=== PATIENT | male | born 1950 | race American Indian/Alaskan Native ===

== ENCOUNTER 2020-12-17 08:00 | Day surgery (SDC) | payer MEDICARE, OTHER ==
[2020-12-17 08:43] LABS: Basophils # (Auto) 0.1 K/mm3 (0.0-0.1); Basophils % (Auto) 1.2 % (0.0-1.8); Eosinophils # (Auto) 0.2 K/mm3 (0.0-0.4); Eosinophils % (Auto) 3.6 % (0.0-4.3); Hematocrit 42.3 % (35.5-45.6); Hemoglobin 13.8 gm/dl (11.8-15.2); Lymphocytes # (Auto) 1.9 K/mm3 (1.2-5.4); Lymphocytes % (Auto) 32.9 % (13.4-35.0); Mean Corpuscular HGB Conc 33 % (32-34); Mean Corpuscular Volume 77 fl (84-94); Monocytes # (Auto) 0.7 K/mm3 (0.0-0.8); Monocytes % (Auto) 12.4 % (0.0-7.3); Red Blood Count 5.53 M/mm3 (3.65-5.03); Red Cell Distribution Width 13.1 % (13.2-15.2)
[2020-12-17 08:54] LABS: INR 1.08 (0.87-1.13)
[2020-12-17 09:00] LABS: BUN/Creatinine Ratio 16; Blood Urea Nitrogen 16 mg/dL (9-20); Calcium 9.2 mg/dL (8.4-10.2); Hemolysis Index 12
[2020-12-17] MEDS ORDERED: SODIUM CHLORIDE 0.9% 500 ML 500 ML IV SCH (09:00)
[2020-12-17] MEDS ORDERED: ASPIRIN EC 325 MG TAB PO SCH (09:00)
[2020-12-17 09:07] LABS: Platelet Count 174 K/mm3 (140-440)
[2020-12-17] MEDS ORDERED: HEPARIN/NS 5000 UNIT/500ML 1,000 ML IR ONE (09:15)
[2020-12-17] MEDS: fentaNYL 100 MCG/2 ML INJ ONE ×2 (09:40→09:45)
[2020-12-17] MEDS: LIDOCAINE (2%) 20 MG/1 ML VIAL 20 ML MDV INFILTRATI ONE ×2 (09:41→09:50)
[2020-12-17] MEDS: VERAPAMIL 5 MG/2 ML INJ ONE ×2 (09:41→09:52)
[2020-12-17] MEDS: MIDAZOLAM 2 MG/2 ML INJ ONE ×2 (09:41→09:45)
[2020-12-17] MEDS: HEPARIN 10,000 UNITS/10 ML VIAL ONE ×2 (09:42→09:52)
[2020-12-17 12:08] VITALS: BP 133/70
--- NOTE | 2020-12-17 12:13 | Cardiac Catherization Report ---
DATE OF SERVICE: 12/17/2020 INDICATIONS: A 70-year-old -[place] gentleman with history of dyspnea on exertion and abnormal EKG, was noted to have decreased ejection fraction by echocardiogram, approximately 40%-45%. On the nuclear imaging ejection fraction was felt to be 35%, with no significant ischemia. However, the patient is having significant symptoms of shortness of breath, which are new. Considering his complaints of shortness of breath along with abnormal nuclear imaging, the decreased ejection fraction, it was felt that the patient could benefit from coronary angiography for diagnostic purposes. Hence, he is scheduled for the same. The patient is aware of the procedure, potential complications, and alternatives of therapy available. DESCRIPTION OF PROCEDURE: The patient was brought to the catheterization laboratory in a fasting condition. The patient was evaluated for moderate sedation and was felt to be an appropriate candidate for moderate sedation. Received IV Versed and fentanyl. Subsequently, the patient was prepared in standard fashion, local anesthesia was given in the right wrist area, right radial artery access was obtained using 21-gauge arterial puncture needle, 5-Iraqi slender sheath was introduced. Received 5 mg of intra-arterial verapamil and 3000 units of intravenous heparin. Subsequently, using 6-Iraqi multipurpose catheter, left ventriculogram was performed in [place] and [place] projection using hand injection followed by angiograms of the left coronary artery in multiple views and followed by angiograms of the right coronary artery in multiple views. At the end of the procedure, catheter and sheath were removed and a radial band was applied with good hemostasis. The patient was monitored throughout the procedure with pulse oximetry, EKG monitoring and hemodynamic monitoring. At the end of the procedure, the patient is communicating normally, with no focal deficits and breathing normally. The patient's moderated sedation started at 9:45 a.m. and ended at 10:00 a.m. FINDINGS: Following findings were noted. 1. Hemodynamics: Opening aortic pressure 153/19. Left ventricular pressure is 154/28. No gradient across the aortic valve. Estimated ejection fraction 35%-40%. 2. Left ventriculogram done in [place] and [place] projection showed marked hypokinesis of the anterior wall in addition to hypokinesis of the posterolateral wall. Overall, ejection fraction is moderately impaired in the range of 35%-40%. Mitral regurgitation could not be evaluated because of limited amount of dye injected. 3. Right coronary artery dominant vessel arises normally from right coronary cusp. Angiographically smooth and normal. 4. Left coronary artery arises normally from left coronary cusp. Left main, LAD and its branches and circumflex artery and its branch are angiographically smooth and normal. 5. Left ventriculogram done in [place] projection shows mildly dilated LV. Left ventricular size upper limits of normal. Ejection fraction was felt to be 35%-40%. FINAL IMPRESSION: Moderate left ventricular dysfunction with ejection fraction of 35%-40% and end-diastolic pressure of 28 mmHg. Coronary angiograms are normal angiographically. At this time, the patient appears to have dilated cardiomyopathy causing his symptoms. PLAN: At this time is to continue medical therapy. Findings were explained to the patient. Procedure was uncomplicated and the patient will be discharged home when he is stable after monitoring for 2-3 hours. TID: [id number] RECEIPT: [id number] ALEYDA/MELODY/IQB MTDD
--- NOTE | 2020-12-17 12:56 | Short Stay Summary ---
Short Stay Documentation Date of service: 12/17/20 - History H&P: obtained from office - Allergies and Medications Current Medications: Allergies No Known Allergies Allergy (Verified 12/17/20 08:20) Home Medications Medication Instructions Recorded Confirmed Last Taken Type Losartan [Cozaar] 50 mg PO QDAY 12/17/20 12/17/20 12/17/20 09:00 History carvediloL [Coreg] 6.25 mg PO BID 12/17/20 12/17/20 1 Week Ago History ~12/10/20 Active Medications Aspirin (Aspirin Ec 325 Mg Tab) 325 mg PO ONCE@0900 BASHIR Stop: 12/17/20 16:00 Sodium Chloride (Nacl 0.9% 500 Ml) 500 mls @ 50 mls/hr IV DIRECT BASHIR Stop: 12/17/20 18:59 - Physical exam Integumentary: other (dressing clean dry intact no bleed or hematoma) - Brief post op/procedure progress note Date of procedure: 12/17/20 Pre-op diagnosis: SOB Post-op diagnosis: other (normal coronaries) Anesthesia: local Estimated blood loss: minimal - Disposition Condition at discharge: Good Disposition: 01 HOME / SELF CARE / HOMELESS Short Stay Discharge Plan Activity: advance as tolerated Diet: low fat, low cholesterol, low salt Wound: keep clean and dry, per your surgeon's advice Follow up with: CAIO RAIN MD [Primary Care Provider] - 7 Days Forms: Sarah[facility] PCI D/C Instructions
--- NOTE | 2020-12-22 14:17 | Electrocardiograph Report ---
[facility] Test Date: 2020-12-17 Test Time: 08:33:56 Pat Name: ALMA PATEL Department: Room: Gender: M Facilities Maintenance Worker: RAJIV : 1950 Requested By: RYAN TALBERT Order Number: [id number] Reading MD: Radha Farmer Measurements Intervals [place] Rate: 53 P: 74 HI: 184 QRS: -69 QRSD: 106 T: -82 QT: 464 QTc: 438 Interpretive Statements Sinus rhythm Ventricular premature complex Probable left atrial enlargement Left anterior fascicular block Low voltage, precordial leads Nonspecific T abnormalities, diffuse leads No previous ECG available for comparison Electronically Signed On 12-22-2020 14:17:24 EDT by Radha Farmer
== END 2020-12-17 13:40 | disposition home or self-care (01) ==
LOC: CATHLABREC 08:00
PROVIDERS: ATTEND Internal Medicine
DX: R94.39 Abnormal result of other cardiovascular function study (principal); R06.00 Dyspnea, unspecified; K21.9 Gastro-esophageal reflux disease without esophagitis; Z79.899 Other long term (current) drug therapy; Z98.890 Other specified postprocedural states
CPT/HCPCS: 36415; 80048; 85025; 85610; 85730; 93005; 93458; 99156; J1644; J2250; J3010; J7040; C1894; Q9967